=== PATIENT | male | born 1965 | race Caucasian/White ===

== ENCOUNTER → 2021-04-17 00:02 | Outpatient (CLI) | payer BC, SELFPAY ==
[2021-04-17 12:30] LABS: SARS-CoV-2 RNA PCR Negative
== END ==
PROVIDERS: PCP Internal Medicine; Visit Provider Internal Medicine Gastroenterology
DX: Z01.812 Encounter for preprocedural laboratory examination (principal); Z20.822 Contact with and (suspected) exposure to COVID-19
CPT/HCPCS: C9803; U0003; U0005

== ENCOUNTER 2021-04-21 00:19 | Day surgery (SDC) | payer BC, SELFPAY ==
[2021-04-09 14:24] VITALS: BMI 26.9
[2021-04-21 07:43] VITALS: BP 171/133; PULSE 119; RESP 20; TEMP 37.1; O2SAT 99
[2021-04-21] MEDS: LACTATED RINGERS 1,000 ML 150 ML IV CONT (07:54)
[2021-04-21 08:03] VITALS: BP 131/98; PULSE 88; RESP 18; O2SAT 97
--- NOTE | 2021-04-21 08:10 | WPDANESEPPF ---
Anes - Initial Pre Proc Eval Procedure: Operation Date: 04/21/21 09:00 Proposed Procedures p Screening Colonoscopy - Frantz Justin MD Date/Time: 04/21/21 08:10 Surgeon: Frantz Justin MD Pre Op Diagnosis: neoplasm screening Patient Data Age: 55 Gender: M Height: 1.83 m Weight: 90.4 kg Last Vital Signs Temp 37.1 C 04/21/21 07:43 Pulse 88 04/21/21 08:03 Resp 18 04/21/21 08:03 BP 131/98 H 04/21/21 08:03 Pulse Ox 97 04/21/21 08:03 Allergies Allergy/AdvReac Type Severity Reaction Status Date / Time No Known Allergies Allergy Mild Verified 04/21/21 07:41 Home Medications Medication Instructions Recorded Confirmed Type No Home Medications 04/09/21 04/09/21 History Patient hx anesthesia problems: none Family hx anesthesia problems: none Results Review: All pre-operative results and documents have been reviewed as part of the pre-operative evaluation. [facility] Past Medical History Medical History (Updated 04/21/21 @ 08:11 by Jarocho Braga MD) Overweight (BMI 25.0-29.9) Social History Social History Smoking status: Never smoker Alcohol intake: current Alcohol use details: socially, 1x per month Substance use: never Substance use type: does not use Living arrangements: with family Spiritual care concerns: No Anes - Eval Final PreProcedure Day of Procedure 04/21/21 08:10 Patient weight: overweight Heart: regular rate and rhythm Lungs: clear to auscultation and normal air movement Airway: Mallampati scale class II Neurological: alert and oriented Last oral intake: >/= 8 hours ASA classification: II Emergent: no Anesthetic plan: proceed Anesthesia type and monitoring: general GIVS Results Review: All pre-operative results and documents have been reviewed as part of the pre-operative evaluation. Informed Consent: The patient's anesthetic plan and its attendant risks and benefits were discussed with the patient/family/POA. Questions were solicited and answers provided to the satisfaction of the patient/family/POA.
--- NOTE | 2021-04-21 08:53 | PM.HPGS ---
History of Present Illness History of Present Illness Consent: Risks, benefits, and alternatives have been discussed and questions answered. Patient agrees to proceed with procedure. Chief complaint: neoplasm screening Narrative: Tristian Dorman is a 55 year old male here for first screening colonoscopy Review of Systems Constitutional: Constitutional: Denies headache(s) and Denies weakness Eyes: Eyes: Denies blurry vision ENT: Reports Normal hearing present, Denies headache(s) and Denies neck pain Cardiovascular: Cardiovascular: Denies chest pain and Denies dyspnea Respiratory: Respiratory: Denies dyspnea Gastrointestinal: Gastrointestinal: Reports no additional gastrointestinal complaints Genitourinary: Genitourinary: Denies dysuria Musculoskeletal: Musculoskeletal: Denies neck pain Integumentary/Breasts: Skin/Breast: Denies dry skin Neurologic: Reports Normal hearing present, Denies headache(s) and Denies weakness Psychiatric: Psychiatric: Denies anxiety Endocrine: Endocrine: Denies change in body appearance Hematologic/Lymphatic: Hematologic/Lymphatic: Denies easy bleeding Allergic/Immunologic: Allergic/Immunologic: Denies urticaria [facility] Past Medical History Medical History (Updated 04/21/21 @ 08:53 by Frantz Justin MD) Colon cancer screening Overweight (BMI 25.0-29.9) Social History Social History Smoking status: Never smoker Alcohol intake: current Alcohol use details: socially, 1x per month Substance use: never Substance use type: does not use Living arrangements: with family Spiritual care concerns: No Meds Home Medications and Allergies Home Medications Medication Instructions Recorded Confirmed Type No Home Medications 04/09/21 04/09/21 History Allergies Allergy/AdvReac Type Severity Reaction Status Date / Time No Known Allergies Allergy Mild Verified 04/21/21 07:41 Vital Signs Vital Signs - 24 hr 04/21/21 07:43 04/21/21 08:03 Temperature 98.8 F Pulse Rate 119 H 88 Respiratory Rate 20 18 Blood Pressure 171/133 H 131/98 H Pulse Oximetry 99 97 Exam Const: General: comfortable and no acute distress HENMT: General nose exam: Normal nares present Eyes: General: appearance normal, both eyes and all related structures Neck: Neck: no JVD Resp: Auscultation: clear to auscultation bilaterally Cardio: Rate: regular rate Rhythm: regular rhythm GI: Inspection: non-distended GI Palp: Yes Soft to palpation Skin: General skin exam: normal color Neuro: General: gait normal Speech: normal speech Extrem: General: normal to inspection Psych: Mental Status: mental status grossly normal Assessment and Plan Assessment and plan (1) Colon cancer screening: Code(s): Z12.11 - Encounter for screening for malignant neoplasm of colon Status: Acute Assessment and Plan: colonoscopy
[2021-04-21 09:14] VITALS: BP 113/79; PULSE 86; RESP 24; O2SAT 97
[2021-04-21 09:24] VITALS: BP 123/84; PULSE 79; RESP 15; O2SAT 95
[2021-04-21 09:34] VITALS: BP 138/98; PULSE 73; RESP 18; O2SAT 96
== END 2021-04-21 09:45 | disposition home or self-care (01) ==
PROVIDERS: PCP Internal Medicine; Visit Provider Internal Medicine Gastroenterology
PROC: 0DJD8ZZ Inspection of Lower Intestinal Tract, Via Natural or Artificial Opening Endoscopic (ICD-10-PCS; CPT 45378; principal; 2021-04-21 09:00)
DX: Z12.11 Encounter for screening for malignant neoplasm of colon (principal); D12.0 Benign neoplasm of cecum; D12.3 Benign neoplasm of transverse colon; K63.5 Polyp of colon; K57.30 Diverticulosis of large intestine without perforation or abscess without bleeding; K64.8 Other hemorrhoids
CPT/HCPCS: 45380; 45385; 88305; J2704; J7120

== ENCOUNTER 2023-07-23 20:19 | Emergency (ER) | payer BC, SELFPAY ==
--- NOTE | ~2023-07-23 | CT_ITS ---
Non-contrast Head CT History: Head injury Technique: Axial non-contrast imaging of the brain was performed. Dose reduction technique was used on this scan by utilizing automated exposure control and iterative reconstruction technique. The dose -length product (DLP) was 605.33 mGy-cm. Findings: There is no evidence of intracranial hemorrhage, mass lesion, or acute infarct. Brain par enchyma appears normal. The ventricles and subarachnoid spaces are normal in size. The calvarium ap pears normal. The visualized paranasal sinuses and mastoid air cells are clear. Impression: No significant abnormality seen. Reviewed, dictated and finalized at [facility]. Impression: No significant abnormality seen.
[2023-07-23 20:23] VITALS: BP 141/108; PULSE 102; RESP 20; TEMP 37.2; O2SAT 100
[2023-07-23 20:32] VITALS: O2SAT 100
--- NOTE | 2023-07-23 20:58 | ED.HEATRA ---
HPI - Head Injury General Chief complaint: Head Injury Stated complaint: head injury Time Seen by Provider: 07/23/23 20:31 Source: patient Mode of arrival: ambulatory Limitations: no limitations History of Present Illness HPI Narrative: Patient is a 57-year-old male who presents the ED with report of a head injury. Patient reports he was cutting tree limbs today when a large tree branch fell and hit him in the right side of his head. Patient denied LOC. He does report pain on the right side of his head with opening and closing his mouth. Denies dizziness, lightheadedness, vision changes, neck or back pain. Patient is not on any blood thinners. Related Data Home Medications Medication Instructions Recorded Confirmed No Home Medications 04/09/21 04/09/21 Allergies Allergy/AdvReac Type Severity Reaction Status Date / Time prednisone Allergy Unknown Verified 07/23/23 20:32 Review of Systems Review of Systems: CONSTITUTIONAL: Denies fever, chills, or sweats. MUSCULOSKELETAL: Denies back pain, extremity pain, myalgia. NEUROLOGIC: See HPI. All systems reviewed & are unremarkable except as noted in HPI and below PMFSH Past Medical History Medical History Colon cancer screening Overweight (BMI 25.0-29.9) Social History Social History Smoking status: Never smoker Alcohol intake: current Alcohol use details: socially, 1x per month Substance use: never Substance use type: does not use Living arrangements: with family Spiritual care concerns: No Exam Narrative: GENERAL: Well appearing, well-nourished, non-toxic, in no acute distress. HEAD: Normocephalic. Small contusion to R temporal region, mildly tender. EYES: PERRL/EOMI, conjunctiva clear ENT: No tenderness along jawline, TMJ region. TM clear. Small amount of cerumen present in canal, no impaction. TM clear. No hemotympanum. RESPIRATORY: Airway patent, respirations nonlabored. CARDIOVASCULAR: Regular rate and rhythm MUSCULOSKELETAL: Moves all extremities. No gross deformities. SKIN: Warm, dry, normal color. NEURO: A&O X3. Speech clear. Cranial nerves II-XII grossly intact. Steady gait. No ataxic movements. No focal deficits. PSYCHIATRIC: Appropriate mood and affect. Normal interaction. Course Vital Signs Vital signs: Vital Signs Temperature 99.0 F 07/23/23 20:23 Pulse Rate 102 H 07/23/23 20:23 Respiratory Rate 20 07/23/23 20:23 Blood Pressure 141/108 H 07/23/23 20:23 Pulse Oximetry 100 07/23/23 20:23 Oxygen Delivery Room Air 07/23/23 20:23 Temperature 99.0 F 07/23/23 20:23 Pulse Rate 102 H 07/23/23 20:23 Respiratory Rate 20 07/23/23 20:23 Blood Pressure 141/108 H 07/23/23 20:23 Pulse Oximetry 100 07/23/23 20:32 Oxygen Delivery Room Air 07/23/23 20:32 MDM - Head Injury MDM Narrative Medical decision making narrative: Neurovascularly intact. CT brain negative. D/C home. Medical Records Attestation: I reviewed the patient's medical records. Imaging Data Attestation: I personally reviewed and interpreted this imaging study as follows: Radiologist's impression: ITS Impressions Head CT 07/23/23 21:16 Impression: No significant abnormality seen. Discharge Plan Discharge Clinical Impression: Closed head injury Qualifiers: Encounter type: initial encounter Qualified Code(s): S09.90XA - Unspecified injury of head, initial encounter Patient Disposition: Home, Self-Care Condition: Stable Instructions: Antibiotic Form, Head Injury (ED) Additional Instructions: Your CT scan of your brain did not show any abnormalities. Recommend Tylenol, ibuprofen as needed for pain. Follow-up with primary care doctor for further evaluation if needed. Return to the ED if you experience worsening or severe pain, recurrent injury, severe dizziness, v
== END 2023-07-23 21:29 | disposition home or self-care (01) ==
PROVIDERS: Emergency Provider Physician Assistant; PCP Internal Medicine
DX: S09.90XA Unspecified injury of head, initial encounter (principal); W20.8XXA Other cause of strike by thrown, projected or falling object, initial encounter
CPT/HCPCS: 70450; 99284

== ENCOUNTER 2024-07-25 04:40 | Day surgery (SDC) | payer BC, SELFPAY ==
[2024-07-15 15:12] VITALS: BMI 28.5
--- OUTSIDE RECORDS SUMMARY | 2024-07-25 04:43 | XMS_ITS | Clinical Summary ---
Author Organization [facility] Address [address] [place] [address] Care Team Providers Care [employer] Name Role Phone Juvencio Nolasco MD Primary Care Provider [phone] Source Comments [facility],non-owned Affiliates and Associated Physician Practices is amultiple site organization consisting of ambulatory clinics and hospital sitesin [place], [place], [place] and [place]. This disclosure is being madepursuant to the Care Everywhere program and may not contain all information available regarding this patient. Last updated 17.[facility] Allergies No known active allergies Medications * Be aware that medications may not be up to date on this document. Alwaysverify current medications with the patient. No known medications Social History Tobacco Use Types Packs/Day Years Used Date Smoking Tobacco: Never Smokeless Tobacco: Never Sex and Gender Information Value Date Recorded Sex Assigned at Not on file Legal Sex Male 4:02 PM DEHORNER Gender Identity Not on file Sexual Orientation Not on file Last Filed Vital Signs Vital Sign Reading Time Taken Comments Blood Pressure 152/88 03/15/2017 4:54 PM DEHORNER Pulse 106 03/15/2017 4:22 PM DEHORNER Temperature 37.4 C (99.4 F) 03/15/2017 4:22 PM DEHORNER Respiratory Rate 16 03/15/2017 4:22 PM DEHORNER Oxygen Saturation 97% 03/15/2017 4:22 PM DEHORNER Inhaled Oxygen Concentration - - Weight 93 kg (205 lb) 03/15/2017 4:22 PM DEHORNER Height 182.9 cm (6') 03/15/2017 4:22 PM DEHORNER Body Mass Index 27.8 03/15/2017 4:22 PM DEHORNER Plan of Treatment Health Maintenance Due Date Last Done Comments COLOGUARD (AGES 45-75) - COL ON CA SCREENING 1966 COLON MONITORING 1966 COLONOSCOPY - COLON CA SCREENING 1966 CT COLONOGRAPHY - COLON CA SCREENING 1966 Colorectal Cancer Screening 1966 FIT - COLON CA SCREENING 1966 FLEX SIG - COLON CA SCREENING 1966 LIPID TESTING 1966 HIV SCREENING 1981 HEPATITIS C SCREENING 09/27/1984 DTAP/TDAP/TD VACCINES (1 - Tdap) 1985 HEPATITIS B VACCINE (1 of 3 - 19+ 3-dose series) 1985 PNEUMOCOCCAL VACCINE 50+ (1 of 1 - PCV) 2016 ZOSTER VACCINE (1 of 2) 2016 SCREENING FOR DIABETES 03/15/2017 COVID-19 VACCINE (1 - 2023-2 5 season) 2023 DEPRESSION SCREENING 02/14/2024 INFLUENZA VACCINE (Season Ended) 2024 HIB VACCINE Aged Out No longer eligi ble based on patient's age to complete this topic HPV VACCINE Aged Out No longer eligi ble based on patient's age to complete this topic MENINGOCOCCAL (Group B) VACC INE SHARED DECISION-MAKING Aged Out No longer eligibl e based on patient's age to complete this topic MENINGOCOCCAL GROUPS A/C/Y/W VACCINE Aged Out No longer eligible b ased on patient's age to complete this topic [place] [address] [address] [address] Care Teams [employer] Relationship Specialty Start Date End Date Juvencio Nolasco MD [address] [place] [id number] PCP - General 04/23/21
[2024-07-25 06:37] VITALS: BP 155/97; PULSE 112; RESP 16; TEMP 36.5; O2SAT 97
[2024-07-25] MEDS: LACTATED RINGERS 1,000 ML 150 ML IV CONT (06:48)
--- NOTE | 2024-07-25 07:44 | WPDANESEPPF ---
Anes - Initial Pre Proc Eval Procedure: Operation Date: 07/25/24 08:00 Proposed Procedures p Colonoscopy - Frantz Justin MD Date/Time: 07/25/24 07:44 Surgeon: Frantz Justin MD Pre Op Diagnosis: Personal history of colon polyps, unspecified Patient Data Age: 58 Gender: M Height: 1.83 m Weight: 95.8 kg Last Vital Signs Temp 97.7 F 07/25/24 06:37 Pulse 112 H 07/25/24 06:37 Resp 16 07/25/24 06:37 BP 155/97 H 07/25/24 06:37 Pulse Ox 97 07/25/24 06:37 O2 Del Method Room Air 07/25/24 06:37 Allergies Allergy/AdvReac Type Severity Reaction Status Date / Time prednisone Allergy Unknown Verified 07/25/24 06:37 Home Medications ?Medication ?Instructions ?Recorded ?Confirmed ?Type No Home Medications 04/09/21 07/15/24 History Patient hx anesthesia problems: none Family hx anesthesia problems: none Results Review: All pre-operative results and documents have been reviewed as part of the pre-operative evaluation. [facility] Past Medical History Medical History Colon cancer screening Overweight (BMI 25.0-29.9) Social History Social History Smoking status: Never smoker Alcohol intake: current Alcohol use details: socially, 1x per month Substance use: never Substance use type: does not use Living arrangements: with family Spiritual care concerns: No Anes - Eval Final PreProcedure Day of Procedure 07/25/24 07:44 Patient weight: obese Heart: regular rate and rhythm Lungs: clear to auscultation Airway: Mallampati scale class II Neurological: alert and oriented Last oral intake: >/= 8 hours ASA classification: II Emergent: no Anesthetic plan: proceed Anesthesia type and monitoring: general GIVS and standard monitoring Results Review: All pre-operative results and documents have been reviewed as part of the pre-operative evaluation. Informed Consent: The patient's anesthetic plan and its attendant risks and benefits were discussed with the patient/family/POA. Questions were solicited and answers provided to the satisfaction of the patient/family/POA.
--- NOTE | 2024-07-25 07:55 | PM.HPGS ---
History of Present Illness History of Present Illness Consent: Risks, benefits, and alternatives have been discussed and questions answered. Patient agrees to proceed with procedure. Chief complaint: Personal history of colon polyps, unspecified Narrative: Tristian Dorman is a 58 year old male with colon polyp in 2021 Review of Systems Review of Systems: All systems reviewed & are unremarkable except as noted in HPI and below PMFSH Past Medical History Medical History (Updated 07/25/24 @ 07:56 by Frantz Justin MD) Colon polyp Colon cancer screening Overweight (BMI 25.0-29.9) Social History Social History Smoking status: Never smoker Alcohol intake: current Alcohol use details: socially, 1x per month Substance use: never Substance use type: does not use Living arrangements: with family Spiritual care concerns: No Meds Home Medications and Allergies Home Medications ?Medication ?Instructions ?Recorded ?Confirmed ?Type No Home Medications 04/09/21 07/15/24 History Allergies Allergy/AdvReac Type Severity Reaction Status Date / Time prednisone Allergy Unknown Verified 07/25/24 06:37 Vital Signs Vital Signs - 24 hr 07/25/24 06:37 Temperature 97.7 F Pulse Rate 112 H Respiratory Rate 16 Blood Pressure 155/97 H Pulse Oximetry 97 Oxygen Delivery Room Air Exam Const: General: comfortable and no acute distress HENMT: Face/Nose/Sinus: Normal nares present Eyes: General: appearance normal, both eyes and all related structures Neck: Neck: no JVD Resp: Auscultation: clear to auscultation bilaterally Cardio: Rate: regular rate Rhythm: regular rhythm GI: Inspection: non-distended GI Palp: Yes Soft to palpation Skin: General skin exam: normal color Neuro: General: gait normal Speech: normal speech Extrem: General: normal to inspection Psych: Mental Status: mental status grossly normal Assessment and Plan Assessment and plan (1) Colon polyp: Code(s): K63.5 - Polyp of colon Status: Acute Assessment and Plan: colonoscopy
--- NOTE | 2024-07-25 08:13 | S_PTH ---
PATIENT: Tristian Dorman LOC: [facility]#:[id number] AGE/SX: 58/M ROOM: RE07/25/[address]: Frantz Justin MD : 1965 BED: DIS: 07/25/2024 SPEC #: [id number] RECD: 07/25/24 08:51 STATUS: MEGHANA REHernan #: [id number] CHIOMA: 07/25/24 08:[address]: Frantz Justin DEPT: [facility] Surgical RECD BY: Nasreen Mckinnon ENTERED: 07/25/24 08:51 SP TYPE: Surgical OTHR DR: Juvencio NolascoMD Tissues: A - Colon Polypectomy Procedures: Hematoxylin and Eosin Stain Gross and Microscopic Level 4
[2024-07-25 08:14] VITALS: BP 101/66; PULSE 85; RESP 11; O2SAT 94
[2024-07-25 08:24] VITALS: BP 108/80; PULSE 81; RESP 20; O2SAT 96
[2024-07-25 08:34] VITALS: BP 124/82; PULSE 78; RESP 20; O2SAT 94
== END 2024-07-25 08:40 | disposition home or self-care (01) ==
PROVIDERS: PCP Internal Medicine; Referring Provider Internal Medicine Gastroenterology; Visit Provider Internal Medicine Gastroenterology
PROC: 0DJD8ZZ Inspection of Lower Intestinal Tract, Via Natural or Artificial Opening Endoscopic (ICD-10-PCS; CPT 45378; principal; 2024-07-25 08:00)
DX: Z12.11 Encounter for screening for malignant neoplasm of colon (principal); K63.5 Polyp of colon; K64.8 Other hemorrhoids; E66.9 Obesity, unspecified; Z68.28 Body mass index [BMI] 28.0-28.9, adult
CPT/HCPCS: 45380; 88305; J2003; J2704; J7120